=== PATIENT | male | born 1975 | race Two or more races ===

== ENCOUNTER 2019-03-24 14:39 | Emergency (ER) | payer OTHER ==
[~2019-03-24] VITALS: Ht 170.2 cm; Wt 95.3 kg
[2019-03-24 17:34] LABS: Basophils # (auto) 0.1 uL; Basophils % (auto) 0.8 % (0.0-2.0); Eosinophils # (auto) 0.3 uL; Lymphocytes # (auto) 2.4 uL; Monocytes # (auto) 1.2 uL; Nucleated Red Blood Cells % 0.2 %
[2019-03-24 17:36] LABS: Eosinophils % (auto) 2.9 % (0.0-7.0); Hematocrit 52.8 % (41.0-53.0); Lymphocytes % (auto) 24.8 % (10.0-50.0); Mean Corpuscular Hemoglobin 29.5 pg (28.0-32.0); Mean Corpuscular Hgb Conc. 34.1 g/dL (32.0-36.0); Mean Corpuscular Volume 86.6 fL (80.0-100.0); Monocytes % (auto) 11.7 % (0.0-12.0); Neutrophils # (auto) 5.9 uL; Neutrophils % (auto) 59.8 % (37.0-80.0); Platelet Count (auto) 275 10^3/uL (140-450); Red Cell Distribution Width 13.6 % (11.8-14.3); White Blood Cell 9.9 10^3/uL (4.4-10.8)
[2019-03-24 17:53] LABS: BUN/Creatinine Ratio 10.2; Calcium 8.9 mg/dL (8.5-10.1)
[2019-03-24 18:00] LABS: Bilirubin, Total 0.9 mg/dL (0.2-1.0); Total Protein 8.2 g/dL (6.4-8.2)
[2019-03-24 18:56] LABS: Urine WBC None Seen /hpf (0 - 3)
[2019-03-24 19:10] LABS: Urine Bacteria NONE SEEN /hpf (None Seen); Urine Blood Negative /uL (Negative); Urine Hyaline Cast FEW /lpf (0 - 2); Urine Specific Gravity 1.008 (1.001-1.035)
[2019-03-24 21:18] VITALS: BP 137/87
== END 2019-03-24 21:24 | disposition home or self-care (01) ==
LOC: ER 14:45
DX: K52.9 Noninfective gastroenteritis and colitis, unspecified (principal); A08.4 Viral intestinal infection, unspecified
CPT/HCPCS: 36415; 80053; 81001; 83690; 85025

== ENCOUNTER 2019-04-20 11:56 | Emergency (ER) | payer OTHER ==
[~2019-04-20] VITALS: Ht 170.2 cm; Wt 88.5 kg
[2019-04-20 14:06] VITALS: BP 135/85
[2019-04-20] MEDS ORDERED: cefTRIAXone SODIUM 250 MG VL IM ONE (14:15)
[2019-04-20] MEDS ORDERED: AZITHROMYCIN 250 MG TAB PO ONE (14:15)
== END 2019-04-20 14:46 | disposition home or self-care (01) ==
LOC: ER 12:08
DX: B00.9 Herpesviral infection, unspecified (principal); M54.9 Dorsalgia, unspecified; R05 Cough
CPT/HCPCS: 96372; 99283; J0696

== ENCOUNTER 2023-01-04 16:08 | Emergency (ER) | payer OTHER, MEDICAID ==
[~2023-01-04] VITALS: Ht 170.2 cm; Wt 89.2 kg
[2023-01-04 17:50] VITALS: BP 125/80; PULSE 88; RESP 19; TEMP 98.3; O2SAT 99
[2023-01-04] MEDS ORDERED: IBUP-1456 PO (18:04)
== END 2023-01-04 18:07 | disposition home or self-care (01) ==
LOC: ER 16:08
DX: S62.610A Displaced fracture of proximal phalanx of right index finger, initial encounter for closed fracture (principal); J45.909 Unspecified asthma, uncomplicated; Z79.1 Long term (current) use of non-steroidal anti-inflammatories (NSAID); W20.8XXA Other cause of strike by thrown, projected or falling object, initial encounter; Y93.89 Activity, other specified; Y92.89 Other specified places as the place of occurrence of the external cause; Y99.8 Other external cause status
CPT/HCPCS: 29125; 73130